=== PATIENT | male | born 1945 | race American Indian/Alaskan Native ===

== ENCOUNTER → 2018-02-20 | Outpatient (CLI) | payer MEDICARE | END | disposition home or self-care (01) | LOC: LAB 16:17 → LAB SHORT 16:17 | DX: B35.1 Tinea unguium (principal) | CPT/HCPCS: 87102 ==

== ENCOUNTER 2019-03-07 13:43 | Emergency (ER) | payer OTHER, MEDICARE ==
[~2019-03-07] VITALS: Ht 182.9 cm; Wt 92.5 kg
[2019-03-07] MEDS ORDERED: TAMS.4ER PO (14:00)
[2019-03-07] MEDS ORDERED: METO25ER PO (14:00)
[2019-03-07] MEDS ORDERED: OMEPRAZOLE20 MG PO ×2 (14:01)
[2019-03-07] MEDS ORDERED: OXYB5 PO (14:01)
[2019-03-07] MEDS ORDERED: Aspirin EC81 MG PO (14:02)
[2019-03-07] MEDS ORDERED: IBUP600 PO (14:02)
[2019-03-07 14:22] LABS: BASOPHILS ABSOLUTE AUTO 0.06 K/mm3 (0.00-0.23); BASOPHILS PERCENT AUTO 1 % (0-2); EOSINOPHILS ABSOLUTE AUTO 0.53 K/mm3 (0.00-0.68); EOSINOPHILS PERCENT AUTO 7 % (0-6); Hematocrit 39.2 % (37.0-53.0); Hemoglobin 12.8 g/dL (13.5-17.5); IMMATURE GRAN ABSOLUTE AUTO 0.02 K/mm3 (0.00-0.10); IMMATURE GRAN PERCENT AUTO 0 % (0-1); LYMPHOCYTES ABSOLUTE AUTO 1.46 K/mm3 (0.84-5.20); LYMPHOCYTES PERCENT AUTO 20 % (21-46); MONOCYTES ABSOLUTE AUTO 0.53 K/mm3 (0.16-1.47); MONOCYTES PERCENT AUTO 7 % (4-13); Mean Corpuscular HGB 30.9 pg (26.0-34.0); Mean Corpuscular HGB Conc 32.7 g/dL (31.5-36.5); Mean Corpuscular Volume 95 fL (80-100); Mean Platelet Volume 9.9 fL (9.1-12.4); NEUTROPHILS ABSOLUTE AUTO 4.55 K/mm3 (1.96-9.15); NEUTROPHILS PERCENT AUTO 64 % (41-73); Platelet Count 264 K/mm3 (150-400); RDW Coefficient Variation 13.5 % (11.7-14.2); RDW Standard Deviation 47.1 fL (35.1-46.3); Red Blood Cell Count 4.14 M/mm3 (4.30-5.90); White Blood Cell Count 7.15 K/mm3 (4.00-11.30)
[2019-03-07 14:47] LABS: Troponin I <0.015 ng/mL (0.000-0.040)
[2019-03-07 15:04] LABS: Alanine Aminotransfer (ALT/SGP 21 U/L (12-78); Albumin, Blood 3.9 g/dL (3.4-5.0); Albumin/Globulin Ratio 1.2 (0.8-1.8); Alk Phos 68 U/L (50-136); Anion Gap 8 mmol/L (6-16); Aspartate Aminotrans (AST/SGOT 11 U/L (12-37); Blood Urea Nitrogen 23 mg/dL (8-24); Bun/Creatinine Ratio 23.4 (12.0-20.0); CO2, Blood 21 mmol/L (21-32); Calcium, Blood 8.8 mg/dL (8.5-10.1); Chloride, Blood 109 mmol/L (98-108); Creatinine, Blood 0.98 mg/dL (0.60-1.20); Globulin, Blood 3.3 g/dL (2.2-4.0); Glomerular Filtration Rate >60 (60-); Glucose, Blood 96 mg/dL (70-99); Potassium, Blood 4.1 mmol/L (3.5-5.5); Sodium, Blood 138 mmol/L (136-145); Total Protein, Blood 7.2 g/dL (6.4-8.2)
== END 2019-03-07 16:00 | disposition home or self-care (01) ==
LOC: ER 13:43
PROVIDERS: Emergency Medicine
DX: R06.00 Dyspnea, unspecified (principal); Z79.899 Other long term (current) drug therapy; Z79.82 Long term (current) use of aspirin; I48.91 Unspecified atrial fibrillation; Z85.828 Personal history of other malignant neoplasm of skin
CPT/HCPCS: 71046; 80053; 83880; 84484; 85025; 93005; 93010; 99285-25

== ENCOUNTER → 2019-11-18 | Outpatient (CLI) | payer MEDICARE ==
[~2019-11-18] MED LIST: Aspirin EC81 MG PO; IBUP600 PO; METO25ER PO; OMEPRAZOLE20 MG PO; OXYB5 PO; TAMS.4ER PO
== END | disposition home or self-care (01) ==
LOC: PLD 08:53 → LAB SHORT 08:53
DX: L57.0 Actinic keratosis (principal)
CPT/HCPCS: 88305

== ENCOUNTER 2020-08-13 12:59 | Inpatient (IN) | payer OTHER, MEDICARE ==
[~2020-08-13] VITALS: Ht 180.3 cm; Wt 98.3 kg
[2020-08-13] MEDS ORDERED: ELIQUIS5 MG PO (13:16)
[2020-08-13] MEDS ORDERED: ATEN25 PO (13:17)
[2020-08-13] MEDS ORDERED: LEVITRA PO (13:17)
[2020-08-13] MEDS ORDERED: LOSA25 PO (13:17)
[2020-08-13 13:51] LABS: BASOPHILS ABSOLUTE AUTO 0.03 K/mm3 (0.00-0.23); BASOPHILS PERCENT AUTO 0 % (0-2); EOSINOPHILS ABSOLUTE AUTO 0.01 K/mm3 (0.00-0.68); EOSINOPHILS PERCENT AUTO 0 % (0-6); Hematocrit 35.8 % (37.0-53.0); Hemoglobin 11.4 g/dL (13.5-17.5); IMMATURE GRAN ABSOLUTE AUTO 0.08 K/mm3 (0.00-0.10); IMMATURE GRAN PERCENT AUTO 1 % (0-1); LYMPHOCYTES ABSOLUTE AUTO 1.17 K/mm3 (0.84-5.20); LYMPHOCYTES PERCENT AUTO 8 % (21-46); MONOCYTES PERCENT AUTO 11 % (4-13); Mean Corpuscular HGB 29.8 pg (26.0-34.0); Mean Corpuscular HGB Conc 31.8 g/dL (31.5-36.5); Mean Corpuscular Volume 94 fL (80-100); Mean Platelet Volume 9.5 fL (9.1-12.4); NEUTROPHILS ABSOLUTE AUTO 12.18 K/mm3 (1.96-9.15); NEUTROPHILS PERCENT AUTO 81 % (41-73); Platelet Count 391 K/mm3 (150-400); RDW Coefficient Variation 14.3 % (11.7-14.2); RDW Standard Deviation 48.9 fL (35.1-46.3); Red Blood Cell Count 3.83 M/mm3 (4.30-5.90); White Blood Cell Count 15.07 K/mm3 (4.00-11.30)
[2020-08-13 14:10] LABS: Alanine Aminotransfer (ALT/SGP 57 U/L (12-78); Albumin, Blood 3.3 g/dL (3.4-5.0); Albumin/Globulin Ratio 0.7 (0.8-1.8); Alk Phos 147 U/L (50-136); Anion Gap 9 mmol/L (6-16); Aspartate Aminotrans (AST/SGOT 42 U/L (12-37); Bilirubin, Total 2.7 mg/dL (0.1-1.0); Blood Urea Nitrogen 14 mg/dL (8-24); Bun/Creatinine Ratio 14.9 (12.0-20.0); CO2, Blood 23 mmol/L (21-32); Calcium, Blood 8.9 mg/dL (8.5-10.1); Chloride, Blood 101 mmol/L (98-108); Creatinine, Blood 0.94 mg/dL (0.60-1.20); Globulin, Blood 4.7 g/dL (2.2-4.0); Glomerular Filtration Rate >60 (60-); Glucose, Blood 135 mg/dL (70-99); Potassium, Blood 4.6 mmol/L (3.5-5.5); Sodium, Blood 133 mmol/L (136-145); Troponin I <0.015 ng/mL (0.000-0.040)
[2020-08-13 18:20] LABS: Influenza A, PCR Negative (NEGATIVE); Influenza B, PCR Negative (NEGATIVE); Resp Syncytial Virus, PCR Negative (NEGATIVE); SARS-Cov-2 (COVID-19) PCR, MMC Negative (NEGATIVE)
[2020-08-13] MEDS ORDERED: OXYC5 PO (21:34)
[2020-08-13] MEDS ORDERED: Acetaminophen325 M1 PO (21:35)
[2020-08-13 23:48] LABS: CPK Creatine Kinase 36 U/L (39-308); Troponin I <0.015 ng/mL (0.000-0.040)
[2020-08-14 01:10] LABS: Source, Urine Clean Catch
[2020-08-14 01:12] LABS: Blood, Urine 2+ (Neg); Glucose Qualitative, Urine Neg (Neg); Ketones, Urine Neg (Neg); Leukocyte Esterase, Urine 1+ (Neg); Nitrite, Urine Neg (Neg); Protein, Urine 2+ (Neg); Urobilinogen, Urine 1+ (Normal)
[2020-08-14 01:14] LABS: Bilirubin, Urine 1+ (Neg); Color, Urine Amber (P-Yellow)
[2020-08-14 01:15] LABS: Appearance, Urine Clear (Clear)
[2020-08-14 01:26] LABS: Bacteria Not Seen /hpf; Red Blood Cells, Urine 0-2 /hpf (0-2); Squamous Epithelial Cells Not Seen /hpf (Few); White Blood Cells, Urine Rare /hpf (0-5)
--- NOTE | 2020-08-14 04:47 | NUR ---
SHIFT SUMMARY ASSUMED CARE OF PT AT 2120. PT IS A/OX4. HEART SOUNDS IRREGULAR, TELE SHOWS AFIB. PT WAS TACACARDIC UPON ARRIVAL, GUTWIL ORDERED 10MG OF CARDIZEM, PT RATE AVERAGED ABOUT 116 T/O THE NIGHT AFTER THIS. LUNG SOUNDS HAVE CRACKLES AT THE BASES. PT ON 2L NC AND GETS SOB WITH ACTIVITY. PT IS 1P SBA TO BATHROOM WITH WALKER. PT HAS HARD TIME PEEING DUE TO BLADDER SURGERY. PT HAD A L KNEE REPLACED EARLIER THIS MONTH. PT REPORTS HEAACHE, LEG AND BLADDER PAIN, MEDICATED PER EMAR. PT WAS ABLE TO SLEEP MOST OF THE NIGHT. CALL LIGHT IN REACH, BED IN LOWEST POSTIN.
[2020-08-14 07:18] LABS: BASOPHILS ABSOLUTE AUTO 0.03 K/mm3 (0.00-0.23); BASOPHILS PERCENT AUTO 0 % (0-2); EOSINOPHILS ABSOLUTE AUTO 0.05 K/mm3 (0.00-0.68); EOSINOPHILS PERCENT AUTO 0 % (0-6); Hematocrit 28.7 % (37.0-53.0); IMMATURE GRAN ABSOLUTE AUTO 0.03 K/mm3 (0.00-0.10); IMMATURE GRAN PERCENT AUTO 0 % (0-1); LYMPHOCYTES ABSOLUTE AUTO 1.23 K/mm3 (0.84-5.20); LYMPHOCYTES PERCENT AUTO 11 % (21-46); MONOCYTES PERCENT AUTO 10 % (4-13); Mean Corpuscular HGB 29.2 pg (26.0-34.0); Mean Corpuscular HGB Conc 31.4 g/dL (31.5-36.5); Mean Corpuscular Volume 93 fL (80-100); Mean Platelet Volume 9.1 fL (9.1-12.4); NEUTROPHILS ABSOLUTE AUTO 8.99 K/mm3 (1.96-9.15); NEUTROPHILS PERCENT AUTO 78 % (41-73); Platelet Count 358 K/mm3 (150-400); RDW Coefficient Variation 14.5 % (11.7-14.2); RDW Standard Deviation 49.6 fL (35.1-46.3); Red Blood Cell Count 3.08 M/mm3 (4.30-5.90); White Blood Cell Count 11.53 K/mm3 (4.00-11.30)
[2020-08-14 07:41] LABS: Alanine Aminotransfer (ALT/SGP 40 U/L (12-78); Albumin, Blood 2.6 g/dL (3.4-5.0); Albumin/Globulin Ratio 0.7 (0.8-1.8); Alk Phos 108 U/L (50-136); Anion Gap 6 mmol/L (6-16); Aspartate Aminotrans (AST/SGOT 17 U/L (12-37); Bilirubin, Total 1.5 mg/dL (0.1-1.0); Blood Urea Nitrogen 14 mg/dL (8-24); Bun/Creatinine Ratio 16.1 (12.0-20.0); CO2, Blood 25 mmol/L (21-32); CPK Creatine Kinase 40 U/L (39-308); Calcium, Blood 8.3 mg/dL (8.5-10.1); Chloride, Blood 103 mmol/L (98-108); Creatinine, Blood 0.87 mg/dL (0.60-1.20); Globulin, Blood 3.9 g/dL (2.2-4.0); Glomerular Filtration Rate >60 (60-); Glucose, Blood 152 mg/dL (70-99); Potassium, Blood 4.4 mmol/L (3.5-5.5); Sodium, Blood 134 mmol/L (136-145); Total Protein, Blood 6.5 g/dL (6.4-8.2); Troponin I <0.015 ng/mL (0.000-0.040)
--- NOTE | 2020-08-14 11:30 | NUR ---
HEART RATE PT'S HEART RATE 120 WHILE RESTING AND INCREASES TO 140-160 WHEN GETTING UP/STANDING AT BEDSIDE. THIS RN CALLED DR. LAUREN AND LEFT MESSAGE THAT PT'S HEART RATE ELEVATED AND WHAT VITALS HAVE BEEN. WILL WAIT TO HEAR FROM HER WITH NEW ORDERS. CALL LIGHT IN REACH.
--- NOTE | 2020-08-14 17:19 | NUR ---
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
--- NOTE | 2020-08-15 04:45 | NUR ---
SHIFT SUMMARY ASSUMED CARE OF PT AT 1900. PT IS A/OX4. HEART SOUNDS IRREGULAR, PT HAS BEEN IN AFIB AVERAGING AROUND 120-130 AND ING THE 150-170 WITH EXCERTION. INTIAL VITALS WERE ELEVATED. UPON REASSESSMENT, PT HR DECREASED TO 113, NO INTERVENTIONS GIVEN. THEN AROUND 0200 PT HR INCREASED TO THE 130S AT REST PER TEACHER ADVISOR, PT MEDICATED WITH PO METOPROLOL WITH LITTLE RELIEF. PT IS A SYMPTOMATIC. PT HAS BEEN GETTING UP TO THE COMMODE AND TO USE THE URINAL MANY TIMES DURING THE NIGHT. PT HAS A HARD TIME URINALTING DUE TO PREVIOUS BLADDER SURGERY, URINE IS CLEAR AND YELLOW. PT IS HAVING A HARD TIME PASSING A STOOL BUT REFUSES FURTHER INTERVENTIONS OTHER THEN SCHEDULED NIGHT TIME MEDS. PT L KNEE IS STILL SWOLLEN, PT HAS BEEN ICING T/O THE NIGHT. PT TAKES PILLS WITH JELLO DUE TO SWOLLOWING PROBLEMS. CALL LIGHT IN REACH, BED IN LOWEST POSTION.
[2020-08-15 05:26] LABS: BASOPHILS ABSOLUTE AUTO 0.03 K/mm3 (0.00-0.23); BASOPHILS PERCENT AUTO 0 % (0-2); EOSINOPHILS ABSOLUTE AUTO 0.12 K/mm3 (0.00-0.68); EOSINOPHILS PERCENT AUTO 1 % (0-6); Hemoglobin 9.8 g/dL (13.5-17.5); IMMATURE GRAN ABSOLUTE AUTO 0.08 K/mm3 (0.00-0.10); IMMATURE GRAN PERCENT AUTO 1 % (0-1); LYMPHOCYTES ABSOLUTE AUTO 1.53 K/mm3 (0.84-5.20); LYMPHOCYTES PERCENT AUTO 11 % (21-46); MONOCYTES ABSOLUTE AUTO 1.16 K/mm3 (0.16-1.47); MONOCYTES PERCENT AUTO 9 % (4-13); Mean Corpuscular HGB 29.5 pg (26.0-34.0); Mean Corpuscular HGB Conc 31.6 g/dL (31.5-36.5); Mean Corpuscular Volume 93 fL (80-100); NEUTROPHILS ABSOLUTE AUTO 10.75 K/mm3 (1.96-9.15); NEUTROPHILS PERCENT AUTO 79 % (41-73); Platelet Count 410 K/mm3 (150-400); RDW Coefficient Variation 14.4 % (11.7-14.2); RDW Standard Deviation 49.1 fL (35.1-46.3); Red Blood Cell Count 3.32 M/mm3 (4.30-5.90); White Blood Cell Count 13.67 K/mm3 (4.00-11.30)
--- NOTE | 2020-08-15 06:31 | NUR ---
HEART RATE PT DID NOT REACT TO THE PO METOROLOL. HOSPITLIST GUTWIL WAS NOTIFIED AND SAID THE GIVE 10MG IV CARDIZUM AND IF HE DOESNT RESPOND TO TRANSFER TO PCU. @ 0628 PT HR WAS 105 AVERAGING 110. CHARGE NURSE NOTIFIED.
--- NOTE | 2020-08-15 12:03 | NUR ---
HEART RATE/TRANSFER PT'S HEART RATE 120-130 RESTING AND UP TO 160-[address] LAUREN IN TO SEE PT AND WAS NOTIFIED OF THIS. DR. LAUREN VERBALLY ORDERED FOR PT TO BE TRANSFERRED TO PCU TO BE PLACED ON A DRIP TO CONTROL HEART RATE. PT TRANSFERRED TO [facility] VIA BED AND BEDSIDE REPORT WAS GIVEN TO RUBY RN. PT'S AWARE THAT PT MOVED TO [facility].
[2020-08-15 12:25] LABS: Thyroxine (T4) 8.4 ug/dL (4.5-12.1); Triiodothyronine, Free 1.89 pg/mL (2.18-3.98)
--- NOTE | 2020-08-15 12:26 | NUR ---
Assumed care: PT IS A&O X4. ON 2 L NASAL CANNULA SATING ABOVE 92%. TELE SHOWING AFIB WITH HR 135. PATIENT SOB WITH EXTENDED CONVERSATION AND MOVING AROUND IN BED TO USE URINAL. DENIES CHEST PAIN. LEFT KNEE DRESSING FROM TOTAL KNEE REPLACEMENT ABOUT 1 WEEK AGO. VITAL SIGNS STABLE WITH SLIGHTLY ELEVATED BP. PT EDUCATED ON SAFETY, CALL LIGHT AND FALL PREVENTION. WILL CONTINUE TO MONITOR.
--- NOTE | 2020-08-15 18:07 | NUR ---
SHIFT SUMMARY: PT A&O X4. ON 2 L NASAL CANNULA SATING ABOVE 92%. TELE SHOWING AFIB. HR AVERAGING 100-110. CARDIZEM DRIP INFUSING AT 5MG/HR. PT DENIES CHEST PAIN/PRESSURE. SOB WITH EXERTION. ABLE TO MOVE AROUND IN BED AND USING URINAL. URINE RETENTION DUE TO HX SEVERE BPH, ABLE TO URINATE IN SMALL AMOUNTS. UP TO BEDSIDE COMMODE. HR INCREASING WITH ACTIVITY. RECENT LEFT KNEE REPLACEMENT, PT STATES "ABOUT 1 WEEK AGO". DRESSING CLEAN/DRY/INTACT. UNABLE TO VISUALIZE SURGICAL SITE. USING ICE ON AND OFF KNEE FOR COMFORT. COMPLAINTS OF KNEE PAIN MANAGED WITH PRN TYLENOL. ENCOURAGED USE OF INCENTIVE SPIROMETER. IN TO VISIT WITH PATIENT THIS EVENING. CONTINUEING TO MONITOR HR AND RHYTHM WITH CARDIZEM DRIP. TAKING PILLS WITH JELLO/PUDDING PER PATIENT PREFERENCE, NO SWALLOWING ISSUES NOTED. CALL LIGHT IN REACH THROUGHOUT SHIFT. BED REMAINED IN LOW, LOCKED POSITION. WILL CONTINUE TO MONITOR AND REPORT OFF TO ONCOMING NURSE.
--- NOTE | 2020-08-16 01:59 | NUR ---
CARDIZEM TITRATION PT HR AVERAGING 118 AT THIS TIME PER CHEESE PRODUCTION SUPERVISOR. REACHING 140'S AT TIMES. TITRATING FROM 5ML TO 10 ML/HR AT THIS TIME TO REACH ORDER/GOAL OF HR LESS THAN 110.
[2020-08-16 03:56] LABS: BASOPHILS ABSOLUTE AUTO 0.04 K/mm3 (0.00-0.23); BASOPHILS PERCENT AUTO 0 % (0-2); EOSINOPHILS PERCENT AUTO 3 % (0-6); Hematocrit 29.3 % (37.0-53.0); Hemoglobin 9.4 g/dL (13.5-17.5); IMMATURE GRAN ABSOLUTE AUTO 0.04 K/mm3 (0.00-0.10); IMMATURE GRAN PERCENT AUTO 0 % (0-1); LYMPHOCYTES ABSOLUTE AUTO 1.09 K/mm3 (0.84-5.20); LYMPHOCYTES PERCENT AUTO 11 % (21-46); MONOCYTES ABSOLUTE AUTO 0.91 K/mm3 (0.16-1.47); MONOCYTES PERCENT AUTO 9 % (4-13); Mean Corpuscular HGB 29.6 pg (26.0-34.0); Mean Corpuscular HGB Conc 32.1 g/dL (31.5-36.5); Mean Corpuscular Volume 92 fL (80-100); Mean Platelet Volume 8.9 fL (9.1-12.4); NEUTROPHILS ABSOLUTE AUTO 7.67 K/mm3 (1.96-9.15); NEUTROPHILS PERCENT AUTO 76 % (41-73); Platelet Count 405 K/mm3 (150-400); RDW Coefficient Variation 14.1 % (11.7-14.2); RDW Standard Deviation 48.4 fL (35.1-46.3); Red Blood Cell Count 3.18 M/mm3 (4.30-5.90); White Blood Cell Count 10.05 K/mm3 (4.00-11.30)
[2020-08-16 04:27] LABS: Anion Gap 9 mmol/L (6-16); Blood Urea Nitrogen 10 mg/dL (8-24); Bun/Creatinine Ratio 12.9 (12.0-20.0); CO2, Blood 24 mmol/L (21-32); Calcium, Blood 8.4 mg/dL (8.5-10.1); Chloride, Blood 104 mmol/L (98-108); Creatinine, Blood 0.77 mg/dL (0.60-1.20); Glomerular Filtration Rate >60 (60-); Glucose, Blood 127 mg/dL (70-99); Magnesium, Blood 2.1 mg/dL (1.6-2.4); Potassium, Blood 3.9 mmol/L (3.5-5.5); Sodium, Blood 137 mmol/L (136-145)
--- NOTE | 2020-08-16 05:47 | NUR ---
SHIFT SUMMARY NO ACUTE CHANGES THIS SHIFT. PT A&OX4. SP02>92% ON 1L NC. TELEMETRY READS AFIB, HR AVG 110'S-120'S. CARDIZEM IV INFUSING AT 10MLS/HR. PT C/O OF L KNEE PAIN, MEDICATED W/ TYLENOL PER EMAR AND PLACED ICE PACK ON KNEE. STATED HE WAS EAGER TO WORK WITH PT/OT TO DO HIS KNEE EXERCISES. PT USED URINAL AT BEDSIDE MULTIPLE TIMES T/O SHIFT WELL UP TO BSC FOR BM X1. PT SLEPT T/O SHIFT. CALL LIGHT IN REACH. WILL GIVE REPORT TO ONCOMING NURSE.
--- NOTE | 2020-08-16 18:49 | NUR ---
SHIFT SUMMARY PT ALERT AND ORIENTED. HR AFIB RATE RANGING FROM 80-100 AT THIS TIME WITH DILTIAZEM GTT AT 15ML/H. BP STABLE. PT DENIES ANY CP/PRESSURE OR DIZZINESS. O2 SATS REMAIN ABOVE 90% ON 1L NC. PT REPORTS FEELING SOB UPON MINIMAL EXERTION. ICE PROVIDED TO LEFT KNEE NEEDED PER PT REQUEST. PT MEDICATED FOR PAIN NEEDED PER EMAR. PT PERFORMING EXERCISES FOR LEFT KNEE THROUGHOUT SHIFT. RASH NOTED TO PT'S BACK THIS SHIFT AND PT MEDICATED WITH BENADRYL. PLAN FOR PT TO BE NPO AT MIDNIGHT FOR RADHA AND CARDIOVERSION IN THE AM. WILL CONTINUE TO MONITOR AND REPORT TO ONCOMING RN.
--- NOTE | 2020-08-17 06:16 | NUR ---
SHIFT SUMMARY PT ALERT AND ORIENTED X 4. SURGICAL DRESSING TO L KNEE C/D/I. PT REPORTS RELIEF WITH COOL APPLICATION AND TYLENOL. HR TACHYCARDIC AT TIMES. CARDIZEM GTT AT 10 MG/HR. HR AVERAGE 90'S. NPO AFTER MIDNIGHT FOR POSSIBLE PROCEDURE THIS AM. BP STABLE. OXYGEN SATURATION MAINTAINED ABOVE 92% ON 1 L OF OXYGEN VIA NC. WILL CONTINUE TO MONITOR UNTIL REPORT GIVEN TO VIRGIL BUNDY.
[2020-08-17 06:51] LABS: BASOPHILS ABSOLUTE AUTO 0.06 K/mm3 (0.00-0.23); BASOPHILS PERCENT AUTO 1 % (0-2); EOSINOPHILS ABSOLUTE AUTO 0.43 K/mm3 (0.00-0.68); EOSINOPHILS PERCENT AUTO 4 % (0-6); IMMATURE GRAN ABSOLUTE AUTO 0.06 K/mm3 (0.00-0.10); IMMATURE GRAN PERCENT AUTO 1 % (0-1); LYMPHOCYTES PERCENT AUTO 14 % (21-46); MONOCYTES ABSOLUTE AUTO 1.01 K/mm3 (0.16-1.47); MONOCYTES PERCENT AUTO 10 % (4-13); Mean Corpuscular HGB 29.8 pg (26.0-34.0); Mean Corpuscular HGB Conc 32.3 g/dL (31.5-36.5); Mean Corpuscular Volume 92 fL (80-100); Mean Platelet Volume 9.1 fL (9.1-12.4); NEUTROPHILS ABSOLUTE AUTO 7.52 K/mm3 (1.96-9.15); NEUTROPHILS PERCENT AUTO 71 % (41-73); Platelet Count 491 K/mm3 (150-400); RDW Coefficient Variation 14.1 % (11.7-14.2); Red Blood Cell Count 3.36 M/mm3 (4.30-5.90); White Blood Cell Count 10.58 K/mm3 (4.00-11.30)
[2020-08-17 07:04] LABS: International Normalized Ratio 1.2; Prothrombin Time Results 12.7 Sec (9.7-11.5)
[2020-08-17 07:08] LABS: Anion Gap 7 mmol/L (6-16); Blood Urea Nitrogen 10 mg/dL (8-24); CO2, Blood 25 mmol/L (21-32); Calcium, Blood 8.9 mg/dL (8.5-10.1); Chloride, Blood 104 mmol/L (98-108); Creatinine, Blood 0.83 mg/dL (0.60-1.20); Glomerular Filtration Rate >60 (60-); Glucose, Blood 115 mg/dL (70-99); Potassium, Blood 4.1 mmol/L (3.5-5.5); Sodium, Blood 136 mmol/L (136-145)
--- NOTE | 2020-08-17 09:45 | NUR ---
UPDATE ATTEMPTED RADHA/CARDIOVERSION IN THE ROOM. SEE SEDATION CHARTING FOR MEDICATOIN ADMINISTRATION AND VITAL SIGNS AND TIME OUT. PLAN FOR GI TO BE CONSULTED FOR EGD. WILL CONTINUE TO MONITOR CLOSELY.
--- NOTE | 2020-08-17 15:00 | NUR ---
UPDATE PT TAKEN TO DAY SURGERY FOR EGD. WILL AWAIT RETURN.
--- NOTE | 2020-08-17 15:35 | NUR ---
08/17/20 1535 ALEXANDRA TERRY History, Chart, Medications and Allergies reviewed before start of procedure. 3-LEAD EKG REVIEWED WITH PHYSICIAN PRIOR TO START OF PROCEDURE. O2 VIA N/C INTACT THROUGHOUT SEDATION/PROCEDURE. MONITOR INTACT WITH CONTINUOUS PULSE OXIMETRY AND INTERMITTENT BP. MAC WITH DR. WELLS.
--- NOTE | 2020-08-17 16:25 | NUR ---
UPDATE PT RETURNED FROM DAY SURGERY AND RADHA/CARDIOVERSOIN. VS STABLE. CARDIOVERSION UNSUCCESSFUL AT HR AFIB 120'S AT THIS TIME. BP STABLE. PT DENIES ANY PAIN. PT ALERT AND ANSWERING QUESTIONS APPROPRIATELY. DILTIAZEM GTT INFUSING AT 10ML/H. AMIO BOLUS AND GTT TO INFUSE PER ORDERS. WILL CONTINUE TO MONITOR CLOSELY.
--- NOTE | 2020-08-18 00:31 | NUR ---
AMIODOARONE TITRATION AMIODARONE TITRATED DOWN TO 16.6 ML/HR FOR THE NEXT 18 HRS.
[2020-08-18 04:58] LABS: BASOPHILS ABSOLUTE AUTO 0.06 K/mm3 (0.00-0.23); BASOPHILS PERCENT AUTO 1 % (0-2); EOSINOPHILS ABSOLUTE AUTO 0.43 K/mm3 (0.00-0.68); EOSINOPHILS PERCENT AUTO 4 % (0-6); Hemoglobin 10.6 g/dL (13.5-17.5); IMMATURE GRAN ABSOLUTE AUTO 0.05 K/mm3 (0.00-0.10); IMMATURE GRAN PERCENT AUTO 1 % (0-1); LYMPHOCYTES ABSOLUTE AUTO 1.37 K/mm3 (0.84-5.20); LYMPHOCYTES PERCENT AUTO 13 % (21-46); MONOCYTES PERCENT AUTO 9 % (4-13); Mean Corpuscular HGB 30.5 pg (26.0-34.0); Mean Corpuscular HGB Conc 33.1 g/dL (31.5-36.5); Mean Corpuscular Volume 92 fL (80-100); NEUTROPHILS ABSOLUTE AUTO 7.57 K/mm3 (1.96-9.15); NEUTROPHILS PERCENT AUTO 73 % (41-73); Platelet Count 538 K/mm3 (150-400); RDW Standard Deviation 47.3 fL (35.1-46.3); Red Blood Cell Count 3.48 M/mm3 (4.30-5.90); White Blood Cell Count 10.38 K/mm3 (4.00-11.30)
[2020-08-18 05:35] LABS: Anion Gap 5 mmol/L (6-16); Blood Urea Nitrogen 15 mg/dL (8-24); Bun/Creatinine Ratio 17.3 (12.0-20.0); CO2, Blood 26 mmol/L (21-32); Chloride, Blood 104 mmol/L (98-108); Creatinine, Blood 0.87 mg/dL (0.60-1.20); Glomerular Filtration Rate >60 (60-); Glucose, Blood 119 mg/dL (70-99); Potassium, Blood 4.2 mmol/L (3.5-5.5); Sodium, Blood 135 mmol/L (136-145)
--- NOTE | 2020-08-18 05:57 | NUR ---
SHIFT SUMMARY PT SLEPT T/O SHIFT. PT REPORTS DIFFICULTY WITH URINATION. BLADDER SCAN REVEALED 275 ML OF URINE IN BLADDER. PT ABLE TO VOID AFTER SCAN. SEE I&O. PT REPORTS RELIEF. HR REMAINED STABLE. PT ON AMIODARONE GTT AND CARDIZEM GTT. SEE EMAR FOR GTT CHANGES. BP STABLE. PT REPORTS NO CP OR PRESSURE. L LEG SURGICAL SITE DRESSING C/D/I. TYLENOL AND ICE PROVIDED FOR PAIN RELIEF. PT REPORTS RELIEF. BENADRYL PROVIDED FOR RELIEF WITH RASH ON BACK. PT REPORTS RELIEF. EKG DONE AT 0500, IN PT'S CHART. WILL CONTINUE TO MONITOR UNTIL REPORT GIVEN TO VIRGIL BUNDY.
--- NOTE | 2020-08-18 18:00 | NUR ---
NO ACUTE EVENTS THIS SHIFT, VSS. PATIENT ABLE TO PIVOT TO BEDSIDE COMMODE/CHAIR WITH NURSE ASSIST AND WALKER. PATIENT WORKED WITH PT TODAY, HR ELEVATED TO 120S R/T ACTIVITY AND PAIN, RETURNED TO MAINTAINING IN 90S-100S ON CARDIZEM DRIP AT 5 MG/HR. PATIENT STATED RELIEF OF KNEE PAIN WITH TYLENOL, ADMIN PER EMAR. PATIENT REMAINS IN A FIB THIS SHIFT, PLAN IS FOR CARDIOVERSION TOMORROW IF PATIENT DOES NOT CONVERT TO NSR OVERNIGHT. NPO AFTER MIDNIGHT. PATIENT ON ROOM AIR THIS SHIFT, O2 SATS IN HIGH 90S.
[2020-08-19 04:42] LABS: BASOPHILS ABSOLUTE AUTO 0.06 K/mm3 (0.00-0.23); BASOPHILS PERCENT AUTO 0 % (0-2); EOSINOPHILS ABSOLUTE AUTO 0.43 K/mm3 (0.00-0.68); EOSINOPHILS PERCENT AUTO 3 % (0-6); Hematocrit 31.3 % (37.0-53.0); IMMATURE GRAN ABSOLUTE AUTO 0.09 K/mm3 (0.00-0.10); IMMATURE GRAN PERCENT AUTO 1 % (0-1); LYMPHOCYTES ABSOLUTE AUTO 1.41 K/mm3 (0.84-5.20); LYMPHOCYTES PERCENT AUTO 10 % (21-46); MONOCYTES ABSOLUTE AUTO 1.35 K/mm3 (0.16-1.47); MONOCYTES PERCENT AUTO 9 % (4-13); Mean Corpuscular HGB 29.2 pg (26.0-34.0); Mean Corpuscular HGB Conc 31.9 g/dL (31.5-36.5); Mean Corpuscular Volume 92 fL (80-100); Mean Platelet Volume 8.8 fL (9.1-12.4); NEUTROPHILS ABSOLUTE AUTO 11.22 K/mm3 (1.96-9.15); NEUTROPHILS PERCENT AUTO 77 % (41-73); Platelet Count 607 K/mm3 (150-400); RDW Coefficient Variation 13.8 % (11.7-14.2); RDW Standard Deviation 46.6 fL (35.1-46.3); Red Blood Cell Count 3.42 M/mm3 (4.30-5.90); White Blood Cell Count 14.56 K/mm3 (4.00-11.30)
[2020-08-19 04:59] LABS: Anion Gap 7 mmol/L (6-16); Blood Urea Nitrogen 13 mg/dL (8-24); Bun/Creatinine Ratio 14.3 (12.0-20.0); CO2, Blood 25 mmol/L (21-32); Chloride, Blood 102 mmol/L (98-108); Creatinine, Blood 0.91 mg/dL (0.60-1.20); Glomerular Filtration Rate >60 (60-); Glucose, Blood 125 mg/dL (70-99); Potassium, Blood 4.3 mmol/L (3.5-5.5); Sodium, Blood 134 mmol/L (136-145)
--- NOTE | 2020-08-19 05:16 | NUR ---
SHIFT SUMMARY PT WAS ALERT AND ORIENTED, COOPERATIVE WITH CARE. VITALS STABLE. HR 100'S, UP TO 120'S, INCREASED DILDILTIAZEM GTT TO 10ML/HR FROM 5ML/HR, HR AVERAGED AROUND 100 THE REMAINDER OF SHIFT. HR UP TO 120'S WHEN PT UP TO BSC. BP 140-120'S SYSTOLIC. O2 SATS >95% ON ROOM AIR. NO REPORT OF SOB. MILD PAIN IN L KNEE FROM PREVIOUS SURGERY, CONTROLLED WITH PRN ACETAMINOPHEN. PT HAD A QUIET UNEVENTFUL NIGHT, HAS BEEN NPO SINCE 2400 OTHER THAN AM MEDICATION, AND IS EAGER FOR PROCEDURE THIS MORNING.
[2020-08-19 06:13] LABS: Source, Urine Clean Catch
[2020-08-19 06:48] LABS: Bilirubin, Urine Neg (Neg); Blood, Urine 2+ (Neg); Glucose Qualitative, Urine Neg (Neg); Ketones, Urine Neg (Neg); Leukocyte Esterase, Urine Neg (Neg); Nitrite, Urine Neg (Neg); Protein, Urine Neg (Neg); Urobilinogen, Urine NORM (Normal)
[2020-08-19 06:53] LABS: Appearance, Urine Clear (Clear); Color, Urine Yellow (P-Yellow)
[2020-08-19 06:56] LABS: White Blood Cells, Urine 0-2 /hpf (0-5)
[2020-08-19 06:57] LABS: Bacteria Few /hpf; Squamous Epithelial Cells Not Seen /hpf (Few)
--- NOTE | 2020-08-19 08:16 | NUR ---
permission of care was given at 0700 on 08/19/2020.
--- NOTE | 2020-08-19 12:35 | NUR ---
PT AWAKE AND CONVERSING APPROPRIATELY POST PROCEDURE, DENIES PAIN. CARDIOVERSION WAS ATTEMPTED UNSUCCESSFULLY X 3 AT 200 JOULE. PT REMAINS IN AFIB 90-100'S.
--- NOTE | 2020-08-19 13:15 | NUR ---
REPORT CALLED TO GREGOR MOLINA; ALL QUESTIONS ANSWERED. PT RETURNED TO ROOM PCU 13, CONDITION STABLE.
--- NOTE | 2020-08-19 16:58 | NUR ---
SHIFT SUMMARY PATIENT WENT FOR CARDIOVERSION IN HEART CENTER TODAY WITH DR. JACKSON, UNSUCCESSFUL PATIENT REMAINED IN A FIB. ON CARDIZEM DRIP THIS MORNING AT 10 MG/HR, TITRATED DOWN TO 5 MG/HR GTT AND STOPPED FOR TRANSFER TO HEART CENTER. PATIENT IN 110S-120S ON RETURN TO UNIT, CARDIZEM RESTARTED AT 5 MG/HR WITH RATE MAINTAINING NOW IN 90S-100S. PATIENT DENIES CHEST PAIN THIS SHIFT. VSS, COOPERATIVE WITH CARE. PLAN IS FOR TITRATING PO MEDS FOR RATE CONTROL AND POSSIBLE OUTPATIENT CARDIOVERSION IN A FEW WEEKS. RASH ON BACK LOOKS CONSISTENT FROM LAST DAY SHIFT, BENADRYL GIVEN PER EMAR FOR SKIN ITCHINESS.
[2020-08-20 03:56] LABS: BASOPHILS ABSOLUTE AUTO 0.06 K/mm3 (0.00-0.23); BASOPHILS PERCENT AUTO 0 % (0-2); EOSINOPHILS ABSOLUTE AUTO 0.38 K/mm3 (0.00-0.68); EOSINOPHILS PERCENT AUTO 3 % (0-6); Hematocrit 31.5 % (37.0-53.0); Hemoglobin 10.1 g/dL (13.5-17.5); IMMATURE GRAN ABSOLUTE AUTO 0.06 K/mm3 (0.00-0.10); IMMATURE GRAN PERCENT AUTO 0 % (0-1); LYMPHOCYTES ABSOLUTE AUTO 1.52 K/mm3 (0.84-5.20); LYMPHOCYTES PERCENT AUTO 11 % (21-46); MONOCYTES ABSOLUTE AUTO 1.11 K/mm3 (0.16-1.47); MONOCYTES PERCENT AUTO 8 % (4-13); Mean Corpuscular HGB 29.2 pg (26.0-34.0); Mean Corpuscular HGB Conc 32.1 g/dL (31.5-36.5); Mean Corpuscular Volume 91 fL (80-100); Mean Platelet Volume 8.6 fL (9.1-12.4); NEUTROPHILS ABSOLUTE AUTO 11.23 K/mm3 (1.96-9.15); NEUTROPHILS PERCENT AUTO 78 % (41-73); Platelet Count 621 K/mm3 (150-400); RDW Coefficient Variation 13.9 % (11.7-14.2); RDW Standard Deviation 46.4 fL (35.1-46.3); Red Blood Cell Count 3.46 M/mm3 (4.30-5.90); White Blood Cell Count 14.36 K/mm3 (4.00-11.30)
[2020-08-20 04:17] LABS: Anion Gap 7 mmol/L (6-16); Blood Urea Nitrogen 14 mg/dL (8-24); Bun/Creatinine Ratio 15.3 (12.0-20.0); CO2, Blood 25 mmol/L (21-32); Calcium, Blood 8.9 mg/dL (8.5-10.1); Chloride, Blood 100 mmol/L (98-108); Creatinine, Blood 0.92 mg/dL (0.60-1.20); Glomerular Filtration Rate >60 (60-); Glucose, Blood 121 mg/dL (70-99); Sodium, Blood 132 mmol/L (136-145)
--- NOTE | 2020-08-20 04:22 | NUR ---
SHIFT SUMMARY PT WAS ON DILTIAZEM GTT AT 5ML/HR T/O SHIFT WITH HR AVERAGING 90-100BPM. HR UP TO 110-120'S WHEN PT UP TO BEDSIDE COMMODE. PT STATED NO CHEST PAIN OR PRESSURE. BP 150 DOWN TO 138 SYSTOLIC BY AM. O2 SATS >96% ON ROOM AIR. PT STATED MILD PAIN IN L KNEE BUT OTHERWISE COMFORTABLE AND EAGER FOR DISCHARGE. PT CURRENTLY DOING WELL IN STABLE CONDTION WITH DILTIAZEM AT 5ML/HR.
--- NOTE | 2020-08-20 10:35 | NUR ---
GAVE HEART MEDS AT 0830. RATE 103. RECHECKED AT 1015. RATE 95 AVG. STOPPED DRIP. STILL AFIB.
--- NOTE | 2020-08-20 16:08 | NUR ---
PT WAS QUITE UNCOMFORTABLE IN BED. OBTAINED RECLINER CHAIR. PT STATES MUCH MORE COMFORT. MED WITH BENADRYL FOR RED RASH ON BACK. PT STATES DOING BETTER. PT HAD BM TODAY. SASHA ENGLISH STOPPED THIS AM PER DR. RATE HAS HELD IN 90-100 MOST OF DAY. STILL IN AFIB. NO NEW CONCERNS TODAY. BED IN LOW POSITION,C ALL LITE IN REACH, CALLS APPROP. AT BEDSIDE THIS AFT.
[2020-08-21 05:43] LABS: BASOPHILS ABSOLUTE AUTO 0.06 K/mm3 (0.00-0.23); BASOPHILS PERCENT AUTO 1 % (0-2); EOSINOPHILS ABSOLUTE AUTO 0.32 K/mm3 (0.00-0.68); EOSINOPHILS PERCENT AUTO 3 % (0-6); Hematocrit 31.7 % (37.0-53.0); Hemoglobin 10.2 g/dL (13.5-17.5); IMMATURE GRAN ABSOLUTE AUTO 0.06 K/mm3 (0.00-0.10); IMMATURE GRAN PERCENT AUTO 1 % (0-1); LYMPHOCYTES PERCENT AUTO 11 % (21-46); MONOCYTES ABSOLUTE AUTO 1.06 K/mm3 (0.16-1.47); MONOCYTES PERCENT AUTO 8 % (4-13); Mean Corpuscular HGB 29.5 pg (26.0-34.0); Mean Corpuscular HGB Conc 32.2 g/dL (31.5-36.5); Mean Corpuscular Volume 92 fL (80-100); Mean Platelet Volume 8.8 fL (9.1-12.4); NEUTROPHILS ABSOLUTE AUTO 9.67 K/mm3 (1.96-9.15); NEUTROPHILS PERCENT AUTO 77 % (41-73); Platelet Count 619 K/mm3 (150-400); RDW Coefficient Variation 13.9 % (11.7-14.2); RDW Standard Deviation 46.6 fL (35.1-46.3); Red Blood Cell Count 3.46 M/mm3 (4.30-5.90); White Blood Cell Count 12.57 K/mm3 (4.00-11.30)
--- NOTE | 2020-08-21 05:43 | NUR ---
SHIFT SUMMARY PT ALERT AND ORIENTED X 4. SBA TO COMMODE. HR STABLE, TACHYCARDIC IN LOW 100'S AT TIMES. BP STABLE. OXYGEN SATURATION MAINTAINED ABOVE 92% ON RA. NO CP OR PRESSURE REPORTED. SURGICAL DRESSING ON L KNEE C/D/I. EKG DONE AT 0500. WILL CONTINUE TO MONITOR UNTIL REPORT GIVEN TO DAYSHIFT RN.
[2020-08-21 05:56] LABS: Anion Gap 7 mmol/L (6-16); Blood Urea Nitrogen 12 mg/dL (8-24); Bun/Creatinine Ratio 14.3 (12.0-20.0); CO2, Blood 25 mmol/L (21-32); Calcium, Blood 8.8 mg/dL (8.5-10.1); Chloride, Blood 100 mmol/L (98-108); Creatinine, Blood 0.84 mg/dL (0.60-1.20); Glomerular Filtration Rate >60 (60-); Glucose, Blood 112 mg/dL (70-99); Sodium, Blood 132 mmol/L (136-145)
[2020-08-21] MEDS ORDERED: METO50ER PO (13:07)
[2020-08-21] MEDS ORDERED: Amiodarone HCl200 MG PO ×2 (13:09→14:26)
[2020-08-21] MEDS ORDERED: FERROUS GLUCON324 M2 PO (13:12)
--- NOTE | 2020-08-21 15:23 | NUR ---
DISCHARGE SUMMARY PT A&Ox4; CALM AND COOPERATIVE WITH CARE. PT RESTING IN BED DURING SHIFT. UP TO BSC WITH SBA. PT DENIES PAIN, CHEST PAIN/PRESSURE, NAUSEA, SOB AND DIZZINESS T/O SHIFT. VSS. NO OTHER ACUTE CHANGES NOTED DURING SHIFT. PT AND SPOUSE EDUCATED ON DISCHARGE INSTRUCTIONS, FOLLOW UP APPOINTMENTS AND MEDICATIONS. PT LEFT ROOM VIA WHEELCHAIR AT 1440.
== END 2020-08-21 14:40 | disposition home or self-care (01) | DRG 308 ==
LOC: ER 12:59 → MEDS 21:11 → PCU 21:11 → MEDS 21:19 → PCU 08-15 11:42
PROVIDERS: Emergency Medicine; Internal Medicine; Internal Medicine Cardiovascular Disease; Internal Medicine Gastroenterology; ADMIT Internal Medicine
PROC: 5A2204Z Restoration of Cardiac Rhythm, Single (ICD-10-PCS; 2020-08-17)
PROC: 0DJ08ZZ Inspection of Upper Intestinal Tract, Via Natural or Artificial Opening Endoscopic (ICD-10-PCS; principal; 2020-08-17 15:00)
DX: I48.91 Unspecified atrial fibrillation (principal); J96.01 Acute respiratory failure with hypoxia; J18.9 Pneumonia, unspecified organism; J98.11 Atelectasis; Z20.822 Contact with and (suspected) exposure to COVID-19; K22.2 Esophageal obstruction; D50.9 Iron deficiency anemia, unspecified; Z96.652 Presence of left artificial knee joint; I10 Essential (primary) hypertension; D69.6 Thrombocytopenia, unspecified; G47.33 Obstructive sleep apnea (adult) (pediatric); N40.1 Benign prostatic hyperplasia with lower urinary tract symptoms; R33.8 Other retention of urine; K21.9 Gastro-esophageal reflux disease without esophagitis; E66.9 Obesity, unspecified; Z68.29 Body mass index [BMI] 29.0-29.9, adult; Z87.891 Personal history of nicotine dependence; Z79.01 Long term (current) use of anticoagulants
CPT/HCPCS: 0241U; 36415; 71045; 71046; 71260; 73562-LT; 80048; 80053; 81001; 82550; 82728; 83540; 83550; 83605; 83735; 83880; 84145; 84436; 84443; 84481; 84484; 85025; 85610; 87040; 87070; 87205; 92960; 93005; 93010; 93306; 93312; 93325; 94760; 96361; 96365; 96375; 97110; 97116; 97163; 97530; 99285-25; A9270; J0282; J0696; J1940; J2250; J2704; J2916; J3010; J7030; J7060; J7120; Q9967

== ENCOUNTER 2020-08-30 11:32 | Inpatient (IN) | payer OTHER, MEDICARE ==
[~2020-08-30] VITALS: Ht 182.9 cm; Wt 95.2 kg
[~2020-08-30 11:32] MED LIST changes: +ATEN25 PO; +Acetaminophen325 M1 PO; +Amiodarone HCl200 MG PO; +ELIQUIS5 MG PO; +FERROUS GLUCON324 M2 PO; +LEVITRA PO; +LOSA25 PO; +METO50ER PO; +OXYC5 PO
[2020-08-30] MEDS ORDERED: OXYC5 PO (11:44)
[2020-08-30] MEDS ORDERED: Phenergan25 M1 PO (11:44)
[2020-08-30 12:14] LABS: Alanine Aminotransfer (ALT/SGP 37 U/L (12-78); Albumin, Blood 2.8 g/dL (3.4-5.0); Albumin/Globulin Ratio 0.6 (0.8-1.8); Alk Phos 201 U/L (50-136); Anion Gap 10 mmol/L (6-16); Aspartate Aminotrans (AST/SGOT 13 U/L (12-37); BASOPHILS ABSOLUTE AUTO 0.04 K/mm3 (0.00-0.23); BASOPHILS PERCENT AUTO 0 % (0-2); Bilirubin, Total 1.1 mg/dL (0.1-1.0); Blood Urea Nitrogen 14 mg/dL (8-24); Bun/Creatinine Ratio 14.1 (12.0-20.0); CO2, Blood 21 mmol/L (21-32); Calcium, Blood 8.7 mg/dL (8.5-10.1); Chloride, Blood 100 mmol/L (98-108); EOSINOPHILS ABSOLUTE AUTO 0.02 K/mm3 (0.00-0.68); EOSINOPHILS PERCENT AUTO 0 % (0-6); Globulin, Blood 4.7 g/dL (2.2-4.0); Glomerular Filtration Rate >60 (60-); Glucose, Blood 132 mg/dL (70-99); Hematocrit 29.3 % (37.0-53.0); Hemoglobin 9.4 g/dL (13.5-17.5); IMMATURE GRAN ABSOLUTE AUTO 0.05 K/mm3 (0.00-0.10); IMMATURE GRAN PERCENT AUTO 1 % (0-1); LYMPHOCYTES ABSOLUTE AUTO 0.94 K/mm3 (0.84-5.20); LYMPHOCYTES PERCENT AUTO 9 % (21-46); MONOCYTES ABSOLUTE AUTO 1.16 K/mm3 (0.16-1.47); MONOCYTES PERCENT AUTO 11 % (4-13); Mean Corpuscular HGB 29.4 pg (26.0-34.0); Mean Corpuscular HGB Conc 32.1 g/dL (31.5-36.5); Mean Corpuscular Volume 92 fL (80-100); Mean Platelet Volume 8.8 fL (9.1-12.4); NEUTROPHILS ABSOLUTE AUTO 8.29 K/mm3 (1.96-9.15); NEUTROPHILS PERCENT AUTO 79 % (41-73); Platelet Count 656 K/mm3 (150-400); RDW Coefficient Variation 14.1 % (11.7-14.2); RDW Standard Deviation 47.5 fL (35.1-46.3); Sodium, Blood 131 mmol/L (136-145); Total Protein, Blood 7.5 g/dL (6.4-8.2); Troponin I <0.015 ng/mL (0.000-0.040)
[2020-08-30 19:17] LABS: Percent Saturation 6.3 % (20.0-50.0)
[2020-09-01 06:00] LABS: Stool Occult Blood Guaiac 1 Neg (Neg)
[2020-09-01 07:12] LABS: Hematocrit 29.9 % (37.0-53.0); Hemoglobin 9.7 g/dL (13.5-17.5)
[2020-09-01 07:30] LABS: Anion Gap 5 mmol/L (6-16); Blood Urea Nitrogen 13 mg/dL (8-24); Bun/Creatinine Ratio 16.1 (12.0-20.0); CO2, Blood 25 mmol/L (21-32); Calcium, Blood 8.8 mg/dL (8.5-10.1); Chloride, Blood 100 mmol/L (98-108); Creatinine, Blood 0.81 mg/dL (0.60-1.20); Glomerular Filtration Rate >60 (60-); Glucose, Blood 162 mg/dL (70-99); Potassium, Blood 4.5 mmol/L (3.5-5.5); Sodium, Blood 130 mmol/L (136-145)
[2020-09-02 07:50] LABS: BASOPHILS PERCENT AUTO 0 % (0-2); EOSINOPHILS PERCENT AUTO 0 % (0-6); Hematocrit 28.8 % (37.0-53.0); Hemoglobin 9.4 g/dL (13.5-17.5); IMMATURE GRAN ABSOLUTE AUTO 0.04 K/mm3 (0.00-0.10); IMMATURE GRAN PERCENT AUTO 0 % (0-1); LYMPHOCYTES ABSOLUTE AUTO 1.29 K/mm3 (0.84-5.20); LYMPHOCYTES PERCENT AUTO 11 % (21-46); MONOCYTES ABSOLUTE AUTO 1.24 K/mm3 (0.16-1.47); MONOCYTES PERCENT AUTO 10 % (4-13); Mean Corpuscular HGB 29.5 pg (26.0-34.0); Mean Corpuscular HGB Conc 32.6 g/dL (31.5-36.5); Mean Corpuscular Volume 90 fL (80-100); Mean Platelet Volume 8.4 fL (9.1-12.4); NEUTROPHILS ABSOLUTE AUTO 9.65 K/mm3 (1.96-9.15); NEUTROPHILS PERCENT AUTO 79 % (41-73); Platelet Count 689 K/mm3 (150-400); RDW Coefficient Variation 14.1 % (11.7-14.2); RDW Standard Deviation 46.7 fL (35.1-46.3); Red Blood Cell Count 3.19 M/mm3 (4.30-5.90); White Blood Cell Count 12.22 K/mm3 (4.00-11.30)
[2020-09-02 08:02] LABS: Anion Gap 6 mmol/L (6-16); Blood Urea Nitrogen 20 mg/dL (8-24); Bun/Creatinine Ratio 22.5 (12.0-20.0); CO2, Blood 26 mmol/L (21-32); Calcium, Blood 8.9 mg/dL (8.5-10.1); Chloride, Blood 101 mmol/L (98-108); Creatinine, Blood 0.89 mg/dL (0.60-1.20); Glomerular Filtration Rate >60 (60-); Glucose, Blood 108 mg/dL (70-99); Potassium, Blood 4.5 mmol/L (3.5-5.5); Sodium, Blood 133 mmol/L (136-145)
[2020-09-03 01:27] LABS: BASOPHILS ABSOLUTE AUTO 0.03 K/mm3 (0.00-0.23); BASOPHILS PERCENT AUTO 0 % (0-2); EOSINOPHILS ABSOLUTE AUTO 0.26 K/mm3 (0.00-0.68); EOSINOPHILS PERCENT AUTO 3 % (0-6); Hematocrit 31.5 % (37.0-53.0); IMMATURE GRAN ABSOLUTE AUTO 0.05 K/mm3 (0.00-0.10); IMMATURE GRAN PERCENT AUTO 1 % (0-1); LYMPHOCYTES ABSOLUTE AUTO 2.78 K/mm3 (0.84-5.20); LYMPHOCYTES PERCENT AUTO 27 % (21-46); MONOCYTES ABSOLUTE AUTO 1.13 K/mm3 (0.16-1.47); MONOCYTES PERCENT AUTO 11 % (4-13); Mean Corpuscular HGB Conc 31.7 g/dL (31.5-36.5); Mean Corpuscular Volume 91 fL (80-100); Mean Platelet Volume 8.5 fL (9.1-12.4); NEUTROPHILS PERCENT AUTO 59 % (41-73); Platelet Count 647 K/mm3 (150-400); RDW Coefficient Variation 14.3 % (11.7-14.2); RDW Standard Deviation 47.5 fL (35.1-46.3); Red Blood Cell Count 3.45 M/mm3 (4.30-5.90); White Blood Cell Count 10.35 K/mm3 (4.00-11.30)
[2020-09-03 01:44] LABS: Bun/Creatinine Ratio 20.8 (12.0-20.0); Calcium, Blood 9.2 mg/dL (8.5-10.1); Creatinine, Blood 1.25 mg/dL (0.60-1.20); Potassium, Blood 4.5 mmol/L (3.5-5.5)
[2020-09-03 09:54] LABS: Influenza A, PCR NEGATIVE (NEGATIVE); Influenza B, PCR NEGATIVE (NEGATIVE); Resp Syncytial Virus, PCR NEGATIVE (NEGATIVE); SARS-Cov-2 (COVID-19) PCR, MMC NEGATIVE (NEGATIVE)
[2020-09-03 10:50] LABS: Albumin, Blood 2.8 g/dL (3.4-5.0); Total Protein, Blood 6.8 g/dL (6.4-8.2)
[2020-09-03 12:00] LABS: Albumin, Body Fluid 1.7 g/dL; Glucose, Body Fluid 105 mg/dL; Lactate Dehydrogenase, Body Fl 238 U/L; Protein, Body Fluid 3.1 g/dL; Triglycerides, Body Fluid 16 mg/dL
[2020-09-03 12:04] LABS: Automated BF RBC Count 0.051 M/mm3 (0-0); Automated BF WBC Count 0.876 K/mm3 (0-999); Body Fluid WBC Count 876 /mm3 (0-999); RBC Count, Body Fluid 51000 /mm3 (0-0)
[2020-09-03 12:37] LABS: Color, Body Fluid Red (None-Yellow); Total Cell Count, Body Fluid 100
[2020-09-03 12:38] LABS: Appearance, Body Fluid Hazy (Clear)
[2020-09-03 12:52] LABS: pH, Body Fluid 7.9
[2020-09-04 08:17] LABS: BASOPHILS ABSOLUTE AUTO 0.05 K/mm3 (0.00-0.23); BASOPHILS PERCENT AUTO 1 % (0-2); EOSINOPHILS ABSOLUTE AUTO 0.62 K/mm3 (0.00-0.68); EOSINOPHILS PERCENT AUTO 9 % (0-6); Hematocrit 30.2 % (37.0-53.0); Hemoglobin 9.6 g/dL (13.5-17.5); IMMATURE GRAN ABSOLUTE AUTO 0.03 K/mm3 (0.00-0.10); IMMATURE GRAN PERCENT AUTO 0 % (0-1); LYMPHOCYTES ABSOLUTE AUTO 1.62 K/mm3 (0.84-5.20); LYMPHOCYTES PERCENT AUTO 23 % (21-46); MONOCYTES ABSOLUTE AUTO 0.66 K/mm3 (0.16-1.47); MONOCYTES PERCENT AUTO 9 % (4-13); Mean Corpuscular HGB 28.7 pg (26.0-34.0); Mean Corpuscular HGB Conc 31.8 g/dL (31.5-36.5); Mean Corpuscular Volume 90 fL (80-100); Mean Platelet Volume 8.6 fL (9.1-12.4); NEUTROPHILS ABSOLUTE AUTO 4.14 K/mm3 (1.96-9.15); NEUTROPHILS PERCENT AUTO 58 % (41-73); Platelet Count 646 K/mm3 (150-400); RDW Coefficient Variation 14.1 % (11.7-14.2); RDW Standard Deviation 46.5 fL (35.1-46.3); Red Blood Cell Count 3.35 M/mm3 (4.30-5.90); White Blood Cell Count 7.12 K/mm3 (4.00-11.30)
[2020-09-04 08:33] LABS: Anion Gap 6 mmol/L (6-16); Blood Urea Nitrogen 20 mg/dL (8-24); Bun/Creatinine Ratio 18.7 (12.0-20.0); CO2, Blood 30 mmol/L (21-32); Calcium, Blood 8.8 mg/dL (8.5-10.1); Chloride, Blood 97 mmol/L (98-108); Creatinine, Blood 1.07 mg/dL (0.60-1.20); Glomerular Filtration Rate >60 (60-); Glucose, Blood 91 mg/dL (70-99); Potassium, Blood 4.2 mmol/L (3.5-5.5); Sodium, Blood 133 mmol/L (136-145)
[2020-09-04] MEDS ORDERED: FURO40 PO (11:34)
[2020-09-04] MEDS ORDERED: BENZ100A PO (11:35)
[2020-09-04] MEDS ORDERED: CODEINE-GUAIFE120 M1 PO (11:37)
[2020-09-04] MEDS ORDERED: OMEP20ER PO (11:38)
== END 2020-09-04 12:00 | disposition home or self-care (01) | DRG 291 ==
LOC: ER 11:32 → PCU 11:33 → ER 11:33 → ERHOLD 11:33 → EDBEDREQ 14:59 → EDBEDREQSVC 14:59 → PCU 16:30 → ERHOLD 16:30 → PCU 17:01 → ERHOLD 08-31 17:01 → PCU 08-31 17:01 → MEDS 09-01 03:48 → PCU 09-01 03:48 → MEDS 09-04 12:00
PROVIDERS: Emergency Medicine; Family Medicine; Hospitalist; Internal Medicine Hematology & Oncology; ADMIT Internal Medicine
PROC: 0W993ZZ Drainage of Right Pleural Cavity, Percutaneous Approach (ICD-10-PCS; principal; 2020-09-03)
DX: I50.31 Acute diastolic (congestive) heart failure (principal); J96.01 Acute respiratory failure with hypoxia; J18.9 Pneumonia, unspecified organism; R65.11 Systemic inflammatory response syndrome (SIRS) of non-infectious origin with acute organ dysfunction; E87.1 Hypo-osmolality and hyponatremia; I31.3 Pericardial effusion (noninflammatory); Z87.891 Personal history of nicotine dependence; Z79.01 Long term (current) use of anticoagulants; I48.0 Paroxysmal atrial fibrillation; D50.9 Iron deficiency anemia, unspecified; G47.33 Obstructive sleep apnea (adult) (pediatric); I27.20 Pulmonary hypertension, unspecified; E66.9 Obesity, unspecified; L25.9 Unspecified contact dermatitis, unspecified cause; I11.0 Hypertensive heart disease with heart failure; Z20.822 Contact with and (suspected) exposure to COVID-19; Z68.28 Body mass index [BMI] 28.0-28.9, adult
CPT/HCPCS: 0241U; 32555; 36415; 71045; 71046; 71250; 80048; 80053; 82040; 82042; 82270; 82728; 82945; 83540; 83550; 83605; 83615; 83735; 83880; 83986; 84145; 84155; 84157; 84478; 84484; 85014; 85018; 85025; 85379; 85730; 87040; 87070; 87075; 87205; 89051; 93005; 93010; 93308; 93321; 94640; 94760; 96365; 96367; 96375; 97110; 97140; 97162; 97530; 99285-25; A9270; G0378; J0456; J0692; J0696; J1644; J1940; J2405; J2930; J7030; J7050

== ENCOUNTER → 2021-08-10 | Outpatient (CLI) | payer OTHER, MEDICARE ==
[~2021-08-10] MED LIST changes: +BENZ100A PO; +CODEINE-GUAIFE120 M1 PO; +FURO40 PO; +OMEP20ER PO; +Phenergan25 M1 PO
== END | disposition home or self-care (01) ==
LOC: LAB SHORT 14:54
DX: D18.01 Hemangioma of skin and subcutaneous tissue (principal); L81.4 Other melanin hyperpigmentation; L57.0 Actinic keratosis; L82.1 Other seborrheic keratosis
CPT/HCPCS: 88305

== ENCOUNTER → 2022-02-13 | Outpatient (CLI) | payer MEDICARE | END | disposition home or self-care (01) | LOC: PLD 12:56 → LAB SHORT 12:56 | DX: L82.1 Other seborrheic keratosis (principal); L57.0 Actinic keratosis | CPT/HCPCS: 88305 ==

== ENCOUNTER → 2022-08-21 | Outpatient (CLI) | payer OTHER, MEDICARE | END | disposition home or self-care (01) | LOC: PLD 11:12 → LAB SHORT 11:12 | DX: D04.72 Carcinoma in situ of skin of left lower limb, including hip (principal); L57.0 Actinic keratosis; C44.719 Basal cell carcinoma of skin of left lower limb, including hip; C44.519 Basal cell carcinoma of skin of other part of trunk | CPT/HCPCS: 88305 ==

== ENCOUNTER 2022-10-18 06:03 | Day surgery (SDC) | payer OTHER ==
[2022-10-18] MEDS ORDERED: AMLO5 PO (06:20)
[2022-10-18] MEDS ORDERED: LOSA50 PO (06:21)
[2022-10-18] MEDS ORDERED: METO25ER PO (06:22)
[2022-10-18] MEDS ORDERED: POTCHL20ER PO (06:25)
[2022-10-18] MEDS ORDERED: VARDENAFIL HCL20 MG PO (06:25)
== END 2022-10-18 09:30 | disposition home or self-care (01) ==
LOC: MHTC 06:03
DX: I48.0 Paroxysmal atrial fibrillation (principal); I11.0 Hypertensive heart disease with heart failure; I50.33 Acute on chronic diastolic (congestive) heart failure; R00.1 Bradycardia, unspecified; G47.33 Obstructive sleep apnea (adult) (pediatric); I27.20 Pulmonary hypertension, unspecified; E66.9 Obesity, unspecified; I31.39 Other pericardial effusion (noninflammatory); R91.8 Other nonspecific abnormal finding of lung field; N40.1 Benign prostatic hyperplasia with lower urinary tract symptoms; R33.8 Other retention of urine; Z96.652 Presence of left artificial knee joint; Z79.899 Other long term (current) drug therapy; Z79.01 Long term (current) use of anticoagulants; Z87.891 Personal history of nicotine dependence
CPT/HCPCS: 92960; 93005; 93010

== ENCOUNTER → 2022-10-19 | Outpatient (CLI) | payer OTHER ==
[~2022-10-19] MED LIST changes: +AMLO5 PO; +LOSA50 PO; +POTCHL20ER PO; +VARDENAFIL HCL20 MG PO
== END ==
LOC: LAB 12:33 → PLD 12:33 → LAB SHORT 12:33
DX: D48.5 Neoplasm of uncertain behavior of skin (principal)
CPT/HCPCS: 88305

== ENCOUNTER 2022-11-09 08:57 | Day surgery (SDC) | payer OTHER ==
[2022-11-09] VITALS (25 sets, daily range): BP systolic 94–135; BP diastolic 55–113
[~2022-11-09] VITALS: Ht 182.9 cm; Wt 95.5 kg
--- NOTE | 2022-11-09 10:20 | NUR ---
PT AWAKE AND TALKING AT THIS TIME, BECOMING MORE ALERT. BACK IN NSR
--- NOTE | 2022-11-09 11:01 | NUR ---
EKG COMPLETE, SHOWS SINUS MAXINE. PT AWAKE AND ALERT. DRESSED PER SELF. DENIES ANY C/O'S. SALINE LOCK REMOVED WITH CATHETER INTACT. PT WHEELED TO IN WAITING ROOM AND AMBULATORY TO PRIVATE VEHICLE PER CHOICE. DISCHARGE REVIEWED WITH PT PRIOR TO DISCHARGE AND VERBALIZES UNDERSTANDING OF INSTRUCTIONS.
== END 2022-11-09 23:19 | disposition home or self-care (01) ==
LOC: MHTC 08:57
DX: I48.0 Paroxysmal atrial fibrillation (principal); I11.0 Hypertensive heart disease with heart failure; I50.32 Chronic diastolic (congestive) heart failure; E66.3 Overweight; G47.33 Obstructive sleep apnea (adult) (pediatric); Z79.899 Other long term (current) drug therapy; Z87.891 Personal history of nicotine dependence; Z79.01 Long term (current) use of anticoagulants
CPT/HCPCS: 92960; 93005; 93010; J7030

== ENCOUNTER → 2023-05-21 | Outpatient (CLI) | payer OTHER | END | disposition home or self-care (01) | LOC: PLD 14:53 → LAB SHORT 14:53 | DX: D48.5 Neoplasm of uncertain behavior of skin (principal) | CPT/HCPCS: 88305 ==